=== PATIENT | male | born 1945 | race Caucasian/White ===

== ENCOUNTER 2020-10-26 01:09 | Emergency (ER) | payer OTHER ==
[~2020-10-26] VITALS: Ht 177.8 cm; Wt 70.0 kg
--- NOTE | 2020-10-26 01:30 | NUR ---
PT TO CT
--- NOTE | 2020-10-26 01:45 | NUR ---
PT RETURNED FROM CT. STEM FRAZER INFORMED THIS RN THAT WHEN PT WAS MOVED TO EXAM TABLE A LARGE AMOUNT OF BUGS WERE FOUND CRAWLING ON THE GURNEY. SAMPLE OF BUGS COLLECTED. PT RETURNED TO ROOM, AWAITING JAMES
--- NOTE | 2020-10-26 02:10 | NUR ---
PT TO [facility]ON TO REMOVE BUGS
[2020-10-26] MEDS ORDERED: DIPH,PERTUSS(ACELL),TET VAC/PF 0.5 ML IM-VACC ONE (03:00)
--- NOTE | 2020-10-26 03:00 | NUR ---
PT SUPINE ON GURNEY, RESTING COMFORTABLY WITH EYES CLOSED. NADN, VSS. PT DENIES ANY NEEDS AT THIS TIME.
[2020-10-26 03:52] VITALS: BP 117/70
--- NOTE | 2020-10-26 06:23 | NUR ---
Patient given discharge instructions and they have confirmed that they understand the instructions. Patient ambulatory with steady gait.
== END 2020-10-26 06:26 | disposition home or self-care (01) ==
LOC: ED 01:25
DX: S01.01XA Laceration without foreign body of scalp, initial encounter (principal); F10.120 Alcohol abuse with intoxication, uncomplicated; W01.0XXA Fall on same level from slipping, tripping and stumbling without subsequent striking against object, initial encounter; Y93.89 Activity, other specified; Y92.89 Other specified places as the place of occurrence of the external cause; Y99.8 Other external cause status; Y90.0 Blood alcohol level of less than 20 mg/100 ml
CPT/HCPCS: 12032; 70450; 72125; 99285

== ENCOUNTER 2020-11-08 17:07 | Emergency (ER) | payer OTHER ==
[~2020-11-08] VITALS: Ht 180.3 cm; Wt 50.4 kg
[2020-11-08 18:12] VITALS: BP 106/70
--- NOTE | 2020-11-08 18:25 | NUR ---
PT AMBULATED BACK TO ROOM FROM LOBBY. PT HERE FOR SUTURE REMOVAL.
--- NOTE | 2020-11-08 18:57 | NUR ---
DISCHARGE INSTRUCTIONS REVIEWED. ALL QUESTIONS ANSWERED AT THIS TIME.
== END 2020-11-08 19:13 | disposition home or self-care (01) ==
LOC: ED 18:19
DX: S01.01XD Laceration without foreign body of scalp, subsequent encounter (principal); Z48.02 Encounter for removal of sutures; X58.XXXD Exposure to other specified factors, subsequent encounter
CPT/HCPCS: 99281